=== PATIENT | female | born 1950 ===

== ENCOUNTER 2025-05-22 07:45 | Day surgery (SDC) | payer OTHER ==
[2025-05-16 11:13] VITALS: BP 138/71
[~2025-05-22] VITALS: Ht 152.4 cm; Wt 61.2 kg
[~2025-05-22 07:45] MED LIST: LOSARTAN; SIMVASTATIN
[2025-05-22] MEDS ORDERED: METRONIDAZOLE/SODIUM CHLORIDE 500 MG/100 ML PIGGYBACK IV ONE (11:15)
[2025-05-22] MEDS ORDERED: LIDOCAINE HCL 1%/EPINEPHRINE 20ML VIAL IJ ONE (11:15)
[2025-05-22] MEDS ORDERED: DIBUCAINE 15 GM OINT..GM. TUBE RECTAL ONE (11:15)
[2025-05-22] MEDS ORDERED: CEFTRIAXONE SODIUM 2,000 MG VIAL IV ONE (11:15)
[2025-05-22] MEDS ORDERED: BUPIVACAINE HCL/PF 0.25% 30ML VIAL InF ONE (11:15)
[2025-05-22] MEDS ORDERED: POVIDONE-IODINE 118 ML BOTT TOP ONE (11:15)
[2025-05-22] MEDS ORDERED: OXYCODONE HCL5 MG PO (12:07)
[2025-05-22] MEDS ORDERED: TAMSULOSIN HCL 0.4 MG CAP PO ONE (12:15)
== END 2025-05-22 16:10 | disposition home or self-care (01) ==
LOC: CIR.AMB 07:45
PROVIDERS: ATTEND Surgery
DX: D01.3 Carcinoma in situ of anus and anal canal (principal); A63.0 Anogenital (venereal) warts; K62.89 Other specified diseases of anus and rectum; K62.0 Anal polyp